=== PATIENT | female | born 1960 | race Caucasian/White ===

== ENCOUNTER 2019-11-17 08:00 | Outpatient (CLI) | payer BC, OTHER, SELFPAY ==
--- NOTE | 2019-12-05 01:51 | SLEEP_ITS ---
CPAP Titration DATE OF STUDY: 11/17/2019 REASON FOR THIS STUDY: Obstructive sleep apnea syndrome. HISTORY: The patient is a 59-year-old female, 68 inches tall, weighing 214 pounds with a body mass index of 32.5. On a prior study, October 24, 2019, she had a home sleep test for complaints of snoring with nocturia up to 2 times per night. On the home sleep study, she had an apnea-hypopnea index of 22.4 with a minimum desaturation to 85% and 6 minutes spent below 88%. She has hypertension and proceeded to a CPAP titration. MEDICAL COMORBIDITIES: Hypertension, arthritis, knee pain, adrenal gland removed, ventricular trigeminy, pheochromocytoma, hyperlipidemia, migraine headaches. MEDICATIONS: 1. Coreg 6.25 mg daily. 2. Ocuvite 1 tablet daily. 3. Multivitamin 1 daily. 4. Vitamin B12. 5. Vitamin C. 6. Vitamin D3. HABITS: Never smoked tobacco. Caffeine, 1 cup of coffee in the morning. Alcohol socially. No recreational drugs. DESCRIPTION OF THE STUDY: On the [place] Sleepiness Scale, her score was 3. This was conducted as an attended study in the sleep lab using the [employer] multiple channel system including EOG, EEG, submental EMG, EKG, nasal and oral airflow using thermistors and nasal pressure sensors, chest and abdominal belts, body position data, and pulse oximetry. This study was scored using CMS guidelines. Duration of the study was 468 minutes. The total sleep time was 237 minutes. The sleep efficiency was 55.4%. Sleep latency was prolonged at 36.1 minutes. REM latency was very prolonged at 218 minutes. There were 58 awakenings. The patient spent 40% of the study awake after sleep onset 172.8 minutes. Sleep architecture showed 10.3% stage I sleep, 41.9% stage II sleep, 0.3% stage III sleep, and 7.5% stage REM, 32.5 minutes. She spent 13.6 minutes supine, the remainder was nonsupine. Sleep architecture was very fragmented with a prolonged sleep latency, frequent shifts between stage wake, stage I, and stage II with 2 brief REM episodes. The first one was just a few minutes. Sleep did become more consolidated by the end of this study in the last 2 hours. The overall apnea-hypopnea index was 15.7. The obstructive index was 14.3. The central index was 0.9. No events occurred during REM. She had 33 obstructive apneas, 4 central apneas, 2 mixed apneas, and 6 obstructive hypopneas in supine non-REM for an index of 47.4. She had 3 obstructive apneas and 20 obstructive hypopneas in nonsupine non-REM for an index of 8.1. The supine index was 45.8. Nonsupine index was 6.9. The lowest desaturation was 86%. She spent 7 minutes below 88%, which was 0.2% of the study. There were 50 desaturations of 4% or greater for an index of 6.1. These all occurred during non-REM sleep. The mean sleep for the study was 94%. AROUSALS: 210 arousals for an index of 26.9. She had 29 apneas for an index of 3.7, 15 hypopneas for an index of 1.9, 15 snores for an index of 1.9, 134 spontaneous arousals for an index of 17.2 and 17 limb movements for an index of 2.1. LIMB MOVEMENTS: 59 limb movements for an index of 13.6. There were 2 periodic limb movements for an index of 0.5. Snoring was minimal, 41 episodes. EKG: Sinus rhythm, mean heart rate 81. No arrhythmia. EEG: Unremarkable. No apparent seizures. During this titration, the patient wore a [employer] small Halima View mask. CPAP was started at 5 cm and increased gradually up to a maximum of 14 cm. At 14 cm of pressure with heated humidifier, the patient was in bed for 1 hour 31 minutes, spent 30 minutes in REM sleep, 57 minutes in non-REM sleep, had 1 obstructive apnea, had an apnea-hypopnea index of 0.7, minimum saturation of 93%, and a sleep efficiency of 97%, which was excellen
== END 2019-11-17 08:01 | disposition home or self-care (01) ==
PROVIDERS: PCP Family Medicine; Visit Provider Internal Medicine Cardiovascular Disease
DX: G47.33 Obstructive sleep apnea (adult) (pediatric) (principal)
CPT/HCPCS: 95811

== ENCOUNTER 2020-10-08 09:58 | Outpatient (CLI) | payer BC, OTHER, SELFPAY ==
--- NOTE | ~2020-10-08 | XR_ITS ---
XR knee RT 3V DATE: 10/08/2020 10:24 INDICATION: Right knee pain. No recent injury. TECHNIQUE: [place], AP and lateral views COMPARISON: None FINDINGS: There is moderate knee joint effusion in the suprapatellar bursa. Synovial osteochondromato sis is noted. Moderate osteoarthritis is noted at the patellofemoral and medial compartments. No fracture, dislocation, periosteal reaction or bone destruction is detected. IMPRESSION: Moderate knee joint effusion Synovial osteochondromatosis Osteoarthritis involving primarily the medial and patellofemoral compartments Reviewed, dictated and finalized at location B. MACHINE OPERATOR
== END 2020-10-08 09:59 | disposition home or self-care (01) ==
LOC: ANHIMG 10:09
PROVIDERS: PCP Family Medicine; Visit Provider Nurse Practitioner Family
DX: M25.461 Effusion, right knee (principal); M17.11 Unilateral primary osteoarthritis, right knee
CPT/HCPCS: 73562

== ENCOUNTER 2020-10-10 08:52 | Outpatient (CLI) | payer BC, OTHER, SELFPAY ==
--- NOTE | ~2020-10-10 | MR_ITS ---
EXAMINATION: MR knee RT wo con DATE: 10/10/2020 10:08 INDICATION: Other abnormalities of gait and mobility. Right knee pain. TECHNIQUE: Magnetic resonance imaging (MRI) of the right knee was performed without intravenous contr ast. Sequences included axial PD-weighted FS FSE, coronal PD-weighted FSE and PD-weighted FS FSE, sag ittal PD-weighted FSE, and sagittal T2-weighted FS FSE. COMPARISON: Right knee radiographs 10/08/2020 FINDINGS: Medial compartment: There is maceration of the medial meniscus. There is full-thickness cartilage loss of tibial condyle involving the medial and anterior articular surface with cortical remodeling, subchondral cysts, mild subchondral edema-like marrow signal intensity, and osteophytes. There is full-thickness cartilage l oss of femoral condyle involving the central and medial articular surface with cortical remodeling, s ubchondral cysts, mild subchondral edema-like marrow signal intensity, and osteophytes. Lateral compartment: Lateral meniscus is normal. There is extensive partial thickness cartilage loss of femoral condyle an d tibial condyle, deep at the central articular surface of femoral condyle and medial articular surfa ce of tibial condyle. Osteophytes are noted. Patellofemoral compartment: There is extensive shallow partial-thickness cartilage loss of patella and trochlea. There is deep pa rtial thickness cartilage loss of central trochlea. Osteophytes are noted. Ligaments and tendons: The anterior and posterior cruciate ligaments are normal. There are changes of prior sprains of media l collateral ligament and fibular collateral ligament characterized by increased signal intensity pro ximally. There is mild patellar tendinopathy. Fluid: There is a large knee joint effusion with loose bodies. There is a large multiloculated Thompson's cyst. IMPRESSION: 1. Severe chondrosis of medial compartment and moderate chondrosis of lateral and patellofemoral comp artments. 2. Maceration of medial meniscus. 3. Large knee joint effusion with loose bodies. 4. Large Thompson's cyst. Reviewed, dictated and finalized at location A. E SEARCH MANAGER IMPRESSION: 1. Severe chondrosis of medial compartment and moderate chondrosis of lateral a nd patellofemoral compartments. 2. Maceration of medial meniscus. 3. Large knee joint effusion with loose bodies. 4. Large Thompson's cyst.
== END 2020-10-10 08:53 | disposition home or self-care (01) ==
LOC: ANHIMG 08:59
PROVIDERS: PCP Family Medicine; Visit Provider Nurse Practitioner Family
DX: R26.89 Other abnormalities of gait and mobility (principal); D48.1 Neoplasm of uncertain behavior of connective and other soft tissue; M25.461 Effusion, right knee; M23.41 Loose body in knee, right knee; M71.21 Synovial cyst of popliteal space [Baker], right knee
CPT/HCPCS: 73721

== ENCOUNTER 2020-11-07 07:55 | Outpatient (CLI) | payer BC, OTHER, SELFPAY ==
--- NOTE | 2020-11-07 09:02 | ECG_ITS ---
Measurements Intervals [place] Rate: 73 P: 27 KS: 153 QRS: 36 QRSD: 97 T: 67 QT: 387 QTc: 428 Interpretive Statements SINUS RHYTHM BASELINE ARTIFACT- I, II, III, AVR, AVL, AVF NORMAL ECG Electronically Signed On 11-07-2020 10:00:11 CAT DOG OR OTHER PET GROOMER by Willie Mejia D.O.
[2020-11-07 09:55] LABS: Basophils Percent Auto 0.4 % (0.2-1.2); Eosinophils Absolute Auto 0.2 K/mm3 (0-0.3); Eosinophils Percent Auto 3.7 % (0-4.4); Hematocrit 41.3 % (37.0-47.0); Hemoglobin 14.2 g/dL (12.0-15.0); Immature Granulocyte Absolute 0.03 K/mm3 (0.00-0.031); Immature Granulocyte Percent A 0.6 % (0-0.5); Lymphocytes Absolute Auto 1.41 K/mm3 (0.9-3.2); Lymphocytes Percent Auto 27.6 % (18.3-44.2); Mean Corpuscular HGB Conc 34.4 g/dl (32-36); Mean Corpuscular Hemoglobin 30.8 pg (26-34); Mean Corpuscular Volume 89.6 fl (80-100); Mean Platelet Volume 10.2 fl (7.4-10.4); Monocytes Absolute Auto 0.5 K/mm3 (0.1-0.6); Neutrophils Percent Auto 58.7 % (45.5-73.1); Platelet Count Result 176 k/mm3 (150-375); Red Blood Count 4.61 M/mm3 (4.2-5.4); White Blood Count 5.1 K/mm3 (4.5-10.0)
[2020-11-07 10:09] LABS: Albumin Level 4.5 g/dL (3.5-5.1); Estimated Glomerular Filt Rate > 60; Glucose 163 mg/dL (65-105); Hemoglobin A1C 7.7 % (<5.7)
[2020-11-07 10:10] LABS: Urine Cotinine NEGATIVE
== END 2020-11-07 07:56 | disposition home or self-care (01) ==
LOC: ANHSURGERY 08:01
PROVIDERS: PCP Family Medicine; Visit Provider Orthopaedic Surgery
DX: M17.11 Unilateral primary osteoarthritis, right knee (principal); Z01.818 Encounter for other preprocedural examination
CPT/HCPCS: 80307; 82040; 82565; 82947; 83036; 85025; 86850; 86900; 86901; 87081; 93005

== ENCOUNTER 2021-09-03 07:36 | Outpatient (CLI) | payer BC, OTHER, SELFPAY ==
--- NOTE | ~2021-09-03 | MM_ITS ---
EXAMINATION: MM screening juan BI w kylie HISTORY: Screening mammogram TECHNIQUE: Craniocaudal and mediolateral oblique 3-D tomosynthesis images were obtained and synthetic 2-D images were generated. CAD analysis was submitted and interpreted. COMPARISON: 09/12/2019 diagnostic right mammogram 08/01/2019 bilateral screening mammogram 07/12/2018 diagnostic left mammogram 06/21/2018 bilateral screening mammogram BREAST PARENCHYMAL COMPOSITION: There are scattered areas of fibroglandular density. FINDINGS: There is a biopsy marker on the right; history of prior benign right breast biopsy. Occasional scattered bilateral punctate benign-appearing microcalcifications. There is no evidence of suspicious mass, calcification, or architectural distortion to suggest malignancy in either breast. There has been no suspicious interval change. IMPRESSION: 1. No mammographic evidence of malignancy. 2. Recommend routine screening mammography in one year. BI-RADS Category 2: Benign finding(s). Reviewed, dictated and finalized at location A. FIELD OPERATOR
--- NOTE | ~2021-09-03 | DEXA_ITS ---
Bone Density Report Name: Lexy Arteaga Age: 61 Sex: Female Ethnicity: White Date of : 1960 Indication: postmenopausal; height loss; hysterectomy; Referring Provider: Aline Collins Study: Bone densitometry was performed. Exam Date: September 03, 2021 Accession number: [id number] Bone Density: Region BMD T-score Z-score Classification AP Spine (L1, L2) 0.928 -0.5 1.1 Normal Femoral Neck (Left) 0.837 -0.1 1.3 Normal Total Hip (Left) 1.117 1.4 2.6 Normal Total Hip Bilateral Avg 1.048 0.9 2.0 Normal Femoral Neck (Right) 0.815 -0.3 1.1 Normal Total Hip (Right) 0.978 0.3 1.4 Normal World Health Organization criteria for BMD impression classify patients as: Normal (T-score at or above -1.0), Osteopenia (T-score between -1.0 and -2.5), or Osteoporosis (T-score at or below -2.5). 10-year Fracture Risk: FRAX not reported because: All T-scores for Spine Total, Hip Total, Femoral Neck at or above -1.0 Previous Exams: Region Exam Age BMD T-score BMD Change BMD Change Date g/cm2 vs Baseline vs Previous AP Spine(L1, L2) 09/03/2021 61 0.928 -0.5 -0.117(-11.2%) -0.016(-1.6%) 06/21/2018 58 0.944 -0.3 -0.102(-9.7%)# -0.102(-9.7%)# 08/09/2012 52 1.045 0.6 Total Hip(Left) 09/03/2021 61 1.117 1.4 -0.035(-3.1%)# 0.004(0.4%) 06/21/2018 58 1.113 1.4 -0.040(-3.4%)# -0.040(-3.4%)# 08/09/2012 52 1.153 1.7 Total Hip(Right) 09/03/2021 61 0.978 0.3 -0.140(-12.5%) -0.060(-5.8%)* 06/21/2018 58 1.038 0.8 -0.079(-7.1%)# -0.079(-7.1%)# 08/09/2012 52 1.117 1.4 *Denotes significance at 95% confidence level, LSC for AP Spine = 0.022 g/cm2, LSC for Total Hip = 0.027 g/cm2 Clinical Information Provided by Patient: Has the following medical conditions: Hysterectomy Patient maximum height was 68.5 Menopause Age: 52 No regular weight bearing exercise Drinks caffeinated beverages Onset of menses at age 10 Number of children 3 Impression: The patient has normal bone mass. The BMD for the Total Hip(Right) decreased, changing by -5.8% since the last DXA exam. Discussion: BONE DENSITY IS ABOVE THE MINIMUM DESIRABLE LEVEL AT ALL SKELETAL SITES TESTED. This patient?s bone mineral density is above the minimum desirable level (T-score -1.0 or better) at all sites measured. The patient should follow a healthful lifestyle (good nutrition with adequate calcium and vitamin D, and appropriate weight-bearing exercise). Follow-Up:
== END 2021-09-03 07:37 | disposition home or self-care (01) ==
LOC: ANHIMG 07:39
PROVIDERS: PCP Family Medicine; Visit Provider Student in an Organized Health Care Education/Training Program
DX: Z12.31 Encounter for screening mammogram for malignant neoplasm of breast (principal); Z78.0 Asymptomatic menopausal state
CPT/HCPCS: 77063; 77067; 77080

== ENCOUNTER 2022-09-19 11:38 | Outpatient (CLI) | payer BC, OTHER, SELFPAY ==
--- NOTE | ~2022-09-19 | MM_ITS ---
EXAMINATION: MM screening juan BI w kylie HISTORY: Screening TECHNIQUE: Craniocaudal and mediolateral oblique 3-D tomosynthesis images were obtained and synthetic 2-D images were generated. CAD analysis was submitted and interpreted. COMPARISON: No prior mammogram is available for comparison at this institution. BREAST PARENCHYMAL COMPOSITION: There are scattered areas of fibroglandular density. FINDINGS: There is no evidence of suspicious mass, calcification, or architectural distortion to sugg est malignancy in either breast. There has been no suspicious interval change. IMPRESSION: 1. No mammographic evidence of malignancy. 2. Recommend routine screening mammography in one year. BI-RADS Category 1: Negative Reviewed, dictated and finalized at location A. CTIONAL BORE OPERATOR
== END 2022-09-19 11:39 | disposition home or self-care (01) ==
PROVIDERS: PCP Family Medicine; Visit Provider Student in an Organized Health Care Education/Training Program
DX: Z12.31 Encounter for screening mammogram for malignant neoplasm of breast (principal)
CPT/HCPCS: 77063; 77067

== ENCOUNTER 2023-04-12 10:30 | Outpatient (RCR) | payer OTHER, SELFPAY ==
[2023-04-01 09:38] VITALS: BMI 32.3
[2023-04-01 14:14] VITALS: BMI 32.3
== END 2023-06-14 10:18 | disposition home or self-care (01) ==
LOC: ANHDMC 10:30
PROVIDERS: PCP Family Medicine; Visit Provider Nurse Practitioner Family
DX: E11.65 Type 2 diabetes mellitus with hyperglycemia (principal); Z71.3 Dietary counseling and surveillance; Z71.89 Other specified counseling
CPT/HCPCS: 97802; G0108

== ENCOUNTER 2024-04-11 08:36 | Outpatient (CLI) | payer MEDICARE, OTHER, SELFPAY ==
--- NOTE | ~2024-04-11 | MM_ITS ---
EXAMINATION: MM screening juan BI w kylie HISTORY: Screening TECHNIQUE: Craniocaudal and mediolateral oblique 3-D tomosynthesis images were obtained and synthetic 2-D images were generated. CAD analysis was submitted and interpreted. COMPARISON: Comparison to multiple prior studies sequentially, with oldest reviewed study dated 06/21. BREAST PARENCHYMAL COMPOSITION: Not dense: There are scattered areas of fibroglandular density. FINDINGS: The left breast is stable without evidence for malignancy. There is a small subareolar mass of the right breast, not definitely seen on prior examination. This is seen on CC view only. The lef t breast is stable without evidence for malignancy. IMPRESSION: 1. New small subareolar mass of the right breast. 2. Additional mammographic views and possible breast ultrasound are recommended. BI-RADS Category 0: Incomplete: Needs additional imaging evaluation. Reviewed, dictated and finalized at location B. IMPRESSION: 1. New small subareolar mass of the right breast. 2. Additional mammographic views and possible breast ultrasound are recommended . BI-RADS Category 0: Incomplete: Needs additional imaging evaluation.
--- NOTE | ~2024-04-11 | DEXA_ITS ---
Bone Density Report Name: GEMMA FRYE Age: 63 Sex: Female Ethnicity: White Date of : 1960 Indication: postmenopausal; screening for osteoporosis; hysterectomy; Referring Provider: ZAK, OSVALDO [place] Study: Bone densitometry was performed. Exam Date: April 11, 2024 Accession number: [id number] Bone Density: Region BMD T-score Z-score Classification AP Spine(L1-L4) 1.070 0.2 2.0 Normal Femoral Neck (Left) 0.906 0.5 2.1 Normal Total Hip (Left) 1.134 1.6 2.8 Normal Femoral Neck (Right) 0.836 -0.1 1.4 Normal Total Hip (Right) 1.052 0.9 2.2 Normal Total Hip Mean 1.093 1.3 2.5 Normal World Health Organization criteria for BMD impression classify patients as: Normal (T-score at or above -1.0), Osteopenia (T-score between -1.0 and -2.5), or Osteoporosis (T-score at or below -2.5). 10-year Fracture Risk: FRAX not reported because: All T-scores for Spine Total, Hip Total, Femoral Neck at or above -1.0 Clinical Information Provided by Patient: Has used the following medications: Vitamin D Has the following medical conditions: Hysterectomy Patient maximum height was 68 Menopause Age: 52 No regular weight bearing exercise Drinks caffeinated beverages Onset of menses at age 11 Number of children 3 Impression: The patient has normal bone mass. Discussion: BONE DENSITY IS ABOVE THE MINIMUM DESIRABLE LEVEL AT ALL SKELETAL SITES TESTED. This patient?s bone mineral density is above the minimum desirable level (T-score -1.0 or better) at all sites measured. The patient should follow a healthful lifestyle (good nutrition with adequate calcium and vitamin D, and appropriate weight-bearing exercise). Follow-Up: Consider repeating this study in 5 years or sooner if there is some new clinical indication. Reported by: MAY on 04/11/2024 9:21:00 AM. Reviewed, dictated and finalized at location AKeiko CHAWLA
== END 2024-04-11 08:37 | disposition home or self-care (01) ==
PROVIDERS: PCP Family Medicine; Visit Provider Registered Nurse
DX: Z12.31 Encounter for screening mammogram for malignant neoplasm of breast (principal); Z78.0 Asymptomatic menopausal state; R92.8 Other abnormal and inconclusive findings on diagnostic imaging of breast
CPT/HCPCS: 77063; 77067; 77080

== ENCOUNTER 2024-05-01 11:05 | Outpatient (CLI) | payer MEDICARE, OTHER, SELFPAY ==
--- NOTE | ~2024-05-01 | MMUS_ITS ---
EXAMINATION: MM diagnostic juan RT w kylie, US breast RT limited HISTORY: Follow-up right breast asymmetry TECHNIQUE: Additional 3-D tomosynthesis images of the right breast were performed and synthetic 2-D i mages were generated. CAD analysis was submitted and interpreted. High resolution Limited right breas t ultrasound was performed. COMPARISON: 04/11/2024 BREAST PARENCHYMAL COMPOSITION: Not dense: There are scattered areas of fibroglandular density. FINDINGS: MAMMOGRAPHIC FINDINGS: There are no suspicious masses, calcifications or architectural distortion in the right breast to sug gest malignancy. ULTRASOUND: Limited right breast ultrasound: At 12:00 near the areola there is a small 4 mm cyst which may repres ent a simple cyst or focally dilated duct. No suspicious masses in the right breast to suggest malign bijal. IMPRESSION: 1. No evidence for malignancy in the right breast. 2. Routine yearly screening mammogram and regular clinical breast examination are recommended. BI-RADS Category 2: Benign finding(s). Reviewed, dictated and finalized at location B. IMPRESSION: 1. No evidence for malignancy in the right breast. 2. Routine yearly screening mammogram and regular clinical breast examination a re recommended. BI-RADS Category 2: Benign finding(s).
== END 2024-05-01 11:06 | disposition home or self-care (01) ==
LOC: ANHIMG 11:06
PROVIDERS: PCP Family Medicine; Visit Provider Obstetrics & Gynecology
DX: R92.8 Other abnormal and inconclusive findings on diagnostic imaging of breast (principal)
CPT/HCPCS: 76642; 77061; 77065; G0279

== ENCOUNTER 2025-06-18 09:01 | Outpatient (CLI) | payer MEDICARE, OTHER, SELFPAY ==
--- NOTE | ~2025-06-18 | MM_ITS ---
EXAMINATION: MM screening [facility] BI w kylie HISTORY: Screening TECHNIQUE: Craniocaudal and mediolateral oblique 3-D tomosynthesis images were obtained and synthetic 2-D images were generated. CAD analysis was submitted and interpreted. COMPARISON: 04/11/2024 and 09/03/2021 BREAST PARENCHYMAL COMPOSITION: There are scattered areas of fibroglandular density. FINDINGS: There is no evidence of suspicious mass, calcification, or architectural distortion to suggest malignancy. There has been no suspicious interval change. IMPRESSION: 1. No mammographic evidence of malignancy. Recommend routine screening mammography in one year. BI-RADS Category 2: Benign finding(s) Reviewed, dictated and finalized at location Q. IMPRESSION: 1. No mammographic evidence of malignancy. Recommend routine screening mammogra phy in one year. BI-RADS Category 2: Benign finding(s)
--- OUTSIDE RECORDS SUMMARY | 2025-06-18 09:46 | XMS_ITS | Encounter Summary ---
Author Organization [facility] Healthcare Address [address] [place] [address] Care Team Providers Care Pediatric Psychiatrist Name Role Phone Lorrie Gordon MD Primary Care Provider [phone] Adan Villela MD Primary Care Provider + [phone] Encounter Details Date Type Department Care Team (Late st Contact Info) Description 11/28/2018 Documentation [facility] Anesthesia [address] [place] [id number] Sinan Bernstein MD [facility] [place] [address] Social History Tobacco Use Types Packs/Day Years Used Date Smoking Tobacco: Former Cigarettes 1 9 - 1983 Smokeless Tobacco: Never Alcohol Use Standard Drinks/Week Comments No 0 (1 standard drink = 0.6 oz pur e alcohol) Comments Unknown Sex and Gender Information Value Date Recorded Sex Assigned at Not on file Legal Sex 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
--- OUTSIDE RECORDS SUMMARY | 2025-06-18 09:46 | XMS_ITS | Clinical Summary ---
Author Organization [facility] Address [address] [place] [address] Care Team Providers Care Steel Spar Operator Name Role Phone Adan Villela MD Primary Care Provider + [phone] Allergies Active Allergy Reactions Criticality Noted Date Comments Penicillin G Rash Medium 11/09/2018 Childhood reaction: rash; per chart records, tolerated cefazolin in 12/2018 Medications multivitamin-ca lcium carb tablet,chewable Take 1 tablet/chew tab by mouth nightly. Active ascorbic acid, vitamin C, 125 mg tablet,chewable Take 1 tablet/chew tab by mouth nightly. Active cyanocobalamin 2,000 mcg tablet Take 1 tablet (2,000 mcg total) by mouth nightly Active cholecalciferol , vitamin D3, 1,000 unit tablet,chewable Take 1 tablet/chew tab by mouth nightly Active carvediloL (COREG) 6.25 mg tablet Take 1 tablet (6.25 mg total) by mouth 2 (two) times a day with meals Active cinnamon bark 500 mg capsule Take 2 capsules (1,000 mg total) by mouth daily Active krill oil 500 mg capsule Take 1 capsule by mouth daily Active metFORMIN (GLUCOPHAGE) 500 mg tablet Take 1 tablet (500 mg total) by mouth nightly Active semaglutide (Ozempic) 1 mg/dose (4 mg/3 mL) pen injector injectionIndica tions:type 2 diabetes mellitus Inject 1 mg under the skin once a week Takes on Fridays. As of 07/13/23, last dose 07/08/23 Active HYDROcodone-suzi taminophen (NORCO) 5-325 mg per tabletIndicatio ns:Pain Take 1 tablet by mouth every 4 (four) hours as needed for pain for up to 30 doses 25 tablet 07/27/2023 Active docusate sodium (COLACE) 100 mg capsuleIndicati ons:constipatio n Take 1 capsule (100 mg total) by mouth 2 (two) times a day For constipation. 60 capsule 07/27/2023 Active Active Problems Problem Noted Date Diagnosed Date Vaginal prolapse 07/27/2023 Vaginal vault prolapse after hysterectomy 2022 Stress incontinence 02/26/2023 Hypertension 11/09/2018 Obesity (BMI 30.0-34.9) 11/09/2018 Pheochromocytoma of left adrenal gland 9 Overview (11/08/2018): Added automatically from request for surgery [id number] Surgical History Surgery Date Site/Laterality Comments KNEE SURGERY 10/04/2012 - 10/03/2013 Right arthroscopy HYSTERECTOMY 10/04/2011 - 10/03/2012 KNEE ARTHROPLASTY 10/04/2020 - 10/03/2021 Right LAPAROSCOPIC ADRENALECTOMY 10/04/2017 - 10/03/2018 Left ENDOMETRIAL ABLATION 10/04/2009 - 10/03/2010 approximate date Medical History Medical History Date Comments Migraines HTN (hypertension) Pheochromocytoma Obesity (BMI 30-39.9) BMI 33 Family History Medical History Relation Name Comments Hypertension Father Hypertension Mother Relation Name Status Comments Father Mother Social History Tobacco Use Types Packs/Day Years Used Date Smoking Tobacco: Former Cigarettes 1 9 - 1983 Smokeless Tobacco: Never Tobacco Cessation:Counseling Given: Not Answered Alcohol Use Standard Drinks/Week Comments No 0 (1 standard drink = 0.6 oz pur e alcohol) AUDIT-C Answer Date Recorded Q1: How often do you have a drink containing alc ohol? Monthly or less 07/27/2023 Q2: How many drinks containi ng alcohol do you have on a typical day when you are drinking? 1 or 2 07/27/2023 Q3: How often do you have si x or more drinks on one occasion? Never 07/27/2023 Personal Safety Answer Date Recorded Have you ever been in or are you currently in a harmful physical or emotional relationship or is someone making you feel afraid or unsafe? 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 Gender Identity Not on file Sexual Orientation Not on file Obstetrics History Last Filed Vital Signs Vital Sign Reading Time Taken Comments Blood Pressure 149/87 07/28/2023 8:10 AM CDT Pulse 72 07/28/2023 8:10 AM CDT Temperature 36.6 C (97.9 F) 07/28/2023 8:10 AM CDT Respiratory Rate 16 07/28/2023 8:10 AM CDT Oxygen Saturation 98% 07/28/2023 8:10 AM CDT Inhaled Oxygen Concentration - - Weight 92 kg (202 lb 13.2 oz) 07/27/2023 4:15 PM CDT Height 172.7 cm (5' 8) 07/27/2023 4:15 PM CDT Body Mass Index 30.84 07/27/2023 4:15 PM CDT Plan of Treatment Health Maintenance Due Date Last Done Comments Breast Cancer Screening-Mammogram 1960 Colon Cancer Screening-Colonoscopy 1960 Depression Screening 1960 Hepatitis C Screening 1960 Osteoporosis Screening-Bone Density Scan 1960 DTaP/Tdap/Td Vaccine (1 - Tdap) 1969 Hepatitis B Screening 1976 Pneumococcal vaccine 65+ (1 of 1 - PCV) 2008 Zoster Vaccine (1 of 2) 2008 Well Visit 65+ 2023 Fall Risk Assessment 07/28/2024 07/28/2023 Covid-19 Vaccine (3 - 2024- season) 06/04/202508/2022, 01/01/2021 Influenza Vaccine (#1) 2025 Medical Devices Implanted Type Area Pipe Smoking Machine Operator Device Identifier Shelf Expiration Date Model / Serial / Lot [employer] Mesh Surgical Pelvic Synthetic Y Shape Vertessa Lite [id number] Polypropylene [id number] - [id number] - [id number] Implanted:Qty: 1 on 07/27/2023 by Luis Cobian MD at [facility] Mesh N/A: Pelvis [employer] 05/18/2028 [id number] / [id number] / [id number] Insurance [facility] MEDICARE [facility] Address: [facility] [address] [place] [address] MEDICARE FOR LIFE Advance Directives For more information, please contact: [phone] * Full Code (Latest Code Status on File) Date Activated Date Inactivated Comments 07/27/2023 4:15 PM 07/28/2023 5:52 PM * Full Code Date Activated Date Inactivated Comments 12/02/2018 2:18 PM 12/03/2018 4:09 PM * Full Code Date Activated Date Inactivated Comments 12/02/2018 2:18 PM 12/02/2018 2:18 PM Care Teams Steel Spar Operator Relationship Specialty Start Date End Date Adan Villela MD PCP - General 12/02/18
--- OUTSIDE RECORDS SUMMARY | 2025-06-18 09:46 | XMS_ITS | Clinical Summary ---
Author Organization [facility] Address [address] [place] [address] Phone Care Team Providers Care Manager Subway Name Role Phone Adan Villela MD Primary Care Provider [phone] Allergies Active Allergy Reactions Criticality Noted Date Comments Penicillins Rash Low 10/17/2019 Medications carvedilol (COREG) 6.25 mg tablet Take 6.25 mg by mouth 2 times daily with meals. 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 Gender Identity Not on file Sexual Orientation Not on file Last Filed Vital Signs Vital Sign Reading Time Taken Comments Blood Pressure 146/90 10/17/2019 11:28 AM ANESTHESIA TECHNICIAN Pulse - - Temperature - - Respiratory Rate - - Oxygen Saturation - - Inhaled Oxygen Concentration - - Weight 99.8 kg (220 lb) 10/17/2019 11:28 AM ANESTHESIA TECHNICIAN Height 172.7 cm (5' 8) 10/17/2019 11:28 AM ANESTHESIA TECHNICIAN Body Mass Index 33.45 10/17/2019 11:28 AM ANESTHESIA TECHNICIAN Plan of Treatment Health Maintenance Due Date Last Done Comments DTAP/TDAP/TD VACCINES (1 - Tdap) 1977 COLORECTAL SCREENING 2003 Colorectal Cancer Screening 2003 FIT-DNA Q 3 years 2003 FIT/FOBT Q 1 year 2003 Flex Sig/CT Colonography Q 5 years 2003 PNEUMOCOCCAL VACCINE 50+ YEA RS (1 of 1 - PCV) 2008 ZOSTER VACCINE (1 of 2) 2008 BREAST CANCER SCREENING 09/12/2020 09/12/20 19, 08/01/2019, 07/12/2018, Additional history exists OSTEOPOROSIS SCREENING 2023 INFLUENZA VACCINE (#1) 2025 RSV VACCINE (60+ or ) (1 - 1-dose 75+ series) 2033 Procedures Procedure Name Priority Date/Time Associated Diagnosis Comments MAMMO DIAGNOSTIC UNI RIGHT W OR WO CAD Routine 09/12/2019 from Last 3 Months or Most Recently Relevant to Health Maintenance Results * (ABNORMAL) MAMMO DIAGNOSTIC UNI RIGHT W OR WO CAD (09/12/2019) Anatomical Region Laterality Modality Breast Right Mammography us Aline Collins MD MAMMO ORDERABLES Edited Re sult - Final from Last 3 Months or Most Recently Relevant to Health Maintenance Insurance [employer] Care Teams Manager Subway Relationship Specialty Start Date End Date Adan Villela MD [address] [place] [address] PCP - General Family Practice 10/17/19
== END 2025-06-18 09:02 | disposition home or self-care (01) ==
LOC: ANHFOHIMG 09:03
PROVIDERS: Visit Provider Nurse Practitioner Obstetrics & Gynecology
DX: Z12.31 Encounter for screening mammogram for malignant neoplasm of breast (principal)
CPT/HCPCS: 77063; 77067

== ENCOUNTER 2025-09-07 15:41 | Emergency (ER) | payer MEDICARE, OTHER, SELFPAY ==
--- NOTE | ~2025-09-07 | XR_ITS ---
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 Findings: Small avulsion fracture medial malleolus No significant degenerative changes. Soft tissues unremarkable. Impression: Small medial malleolus avulsion fracture Reviewed, dictated and finalized at location P. NESS ANALYST MANAGER Impression: Small medial malleolus avulsion fracture
--- NOTE | 2025-09-07 15:44 | ED.LOWEXIN ---
HPI - Extremity Injury (Lower) General Chief Complaint: Extremity Injury, Lower Stated Complaint: Right Ankle Pain Time Seen by Provider: 09/07/25 15:58 Source: patient, RN notes reviewed and old records reviewed Mode of arrival: ambulatory Limitations: no limitations History of Present Illness HPI Narrative: 65-year-old female presents to the [facility] with complaints of ankle pain, swelling and bruising. Tenderness to both the lateral and medial malleolus. Patient states that she twisted her foot on Wednesday and fell onto it. Has been wrapping it and applying ice. Treatments prior to arrival: cold therapy and splint Related Data Home Medications ?Medication ?Instructions ?Recorded ?Confirmed ?Last Taken ?Type ascorbic acid (vitamin C) 1,000 mg 2,000 g PO DAILY 12/11/20 08/13/25 Unknown History tablet multivitamin (Daily Multi-Vitamin 1 tablet PO DAILY 07/14/22 08/13/25 Unknown History tablet) cholecalciferol (vitamin D3) 25 25 mcg PO DAILY 01/20/23 08/13/25 Unknown History mcg (1,000 unit) capsule cinnamon bark 500 mg capsule 500 mg PO DAILY 01/20/23 08/13/25 Unknown History (Cinnamon) cyanocobalamin (vitamin B-12) 3,000 mcg PO DAILY 01/20/23 08/13/25 Unknown History 3,000 mcg capsule omega-3 fatty acids-fish oil 360 1 cap PO DAILY 04/03/25 08/13/25 Unknown History mg-1,200 mg capsule (Fish Oil) Allergies Allergy/AdvReac Type Severity Reaction Status Date / Time cortisone Allergy Mild heart Verified 09/07/25 16:05 racing, headache, sweats Penicillins Allergy Unknown Unknown Verified 09/07/25 16:05 [id number] Reductase AdvReac muscle Verified 09/07/25 16:05 Inhibitor cramps Review of Systems Review of Systems: All systems reviewed & are unremarkable except as noted in HPI and below Constitutional: Constitutional: Reports no additional constitutional complaints Cardiovascular: Cardiovascular: Reports no additional cardiovascular complaints, Denies chest pain and Denies dyspnea Respiratory: Respiratory: Reports no additional respiratory complaints, Denies chest congestion, Denies cough and Denies dyspnea Musculoskeletal: Musculoskeletal: Reports as per HPI, Reports arthralgias and Reports joint swelling Integumentary/Breasts: Skin/Breast: Reports system reviewed and no additional complaints, except as docu [facility] Past Medical History Medical History History of pheochromocytoma Osteoarthritis of right knee Anemia BMI 35.0-35.9,adult Essential hypertension Hypersomnia Irregular heart beat Mixed hyperlipidemia Surgical History Surgical History Status post sacrocolpopexy vaginal sacrocolpopexy with bladder sling by Dr. Cobian 07/2023 Hx of partial adrenalectomy H/O knee surgery Left knee 2012 Dr. Hurt Right knee 2020 H/O: hysterectomy H/O colonoscopy Family History Family History Grandparent Family history of premature coronary heart disease Father Hypertension Mother Hypertension Blind Other Diabetes mellitus Social History Social History Years smoked: 8 Smoking status: Former smoker Tobacco type: cigarettes Second hand tobacco smoke exposure: No Smoking end date: 10/04/84 Additional smoking assessment comments: DENIES ANY FORM OF TOBACCO USE Alcohol intake: current Substance use: never Substance use type: does not use Lack of Transportation: No Lack of Food: Never True Current Housing: I Have Housing Concerned About Future Housing: No Difficulty Paying Gas/Electric Bills: No Difficulty Paying for Meds: No Currently Unemployed: No Education: High School Diploma/GED Difficulty w/ Childcare or Family Care: No Living arrangements: with family Occupation/Education: retired Additional occupation/education comments: [employer]-retired 06/25 Gender identity (if verbalized by the patient): Female Spiritual care concerns: No Comments At the time of my signature, I reviewed and agree with the nursing past medical, surgical, social, and family history. There is no relevant family history pertinent to the patient complaint. Exam Const: General: cooperative, healthy appearing, comfortable, no acute distress, well developed, alert and well nourished Nutritional Appearance: well nourished Orientation/consciousness: patient oriented x3 Limitations: no limitations HENMT: Head: normal to inspection Eyes: General: appearance normal, both eyes and all related structures Alignment and Position: alignment normal Neck: Neck: normal visual inspection, full ROM, no lymphadenopathy and no meningeal signs Chest: Chest palpation & inspection: normal inspection of the chest Resp: Effort & Inspection: normal respiratory effort and able to speak in complete sentences Cardio: Rate: regular rate Skin: General skin exam: normal color and no rashes or lesions noted Neuro: General: patient oriented x3, gait normal, moves all extremities and no meningeal signs Cognition (Neuro): normal cognition Speech: normal speech Gait exam (Neuro): Normal gait present Extrem: General: normal to inspection, full ROM, capillary refill normal and normal gait Right lower extremity: full ROM and ankle Details: tenderness Location: of the lateral malleolus and of the medial malleolus, swelling Details: diffusely, normal ROM and ecchymosis; no abrasions, no lacerations and no foreign bodies Psych: Appearance: grossly normal and well kempt Mental Status: mental status grossly normal Speech and movement: Normal speech and movement present and Clear speech present Affect: normal affect Attitude: cooperative Course Course Level of Care: Express Care Visit Vital Signs Vital signs: Vital Signs Temperature 97.9 F 09/07/25 15:57 Pulse Rate 91 09/07/25 15:57 Respiratory Rate 18 09/07/25 15:57 Blood Pressure 179/91 H 09/07/25 15:57 Pulse Oximetry 98 09/07/25 15:57 Oxygen Delivery Room Air 09/07/25 15:57 Temperature 97.9 F 09/07/25 15:57 Pulse Rate 91 09/07/25 15:57 Respiratory Rate 18 09/07/25 15:57 Blood Pressure 179/91 H 09/07/25 15:57 Pulse Oximetry 98 09/07/25 15:57 Oxygen Delivery Room Air 09/07/25 15:57 reviewed MDM MDM Narrative Medical decision making narrative: Patient sitting in exam room. Patient is nontoxic, vitals stable. Patient injured ankle on Wednesday, 4 days ago, x-ray shows medial malleolus chip fracture, splint placed. Patient already has crutches. Patient is appropriate for outpatient treatment with close follow-up. Discussed blood pressure to follow-up with primary care provider Discharge instructions reviewed with patient, as well as provided in writing per nursing staff. The instructions also include specific and strict return/GO TO THE ER as well as f/u information. All questions have been answered, and the patient deny any further questions with discharge and discharge plan. Some parts of this dictation were generated by voice recognition software and may contain typographical and/or grammatical inaccuracies. Differential Diagnosis Differential Diagnosis: Differential diagnostic considerations for lower extremity injury include ankle sprain/strain, acute internal derangement of knee, fracture of femur, fracture of hip, puncture wound of foot, fracture of toe, fracture of ankle, tendon rupture (achilles/patellar/quadriceps). 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 Findings: Small avulsion fracture medial malleolus No significant degenerative changes. Soft tissues unremarkable. Impression: Small medial malleolus avulsion fracture Discharge Plan Discharge Clinical Impression: Elevated blood pressure reading Avulsion fracture of medial malleolus of right tibia Qualifiers: Encounter type: initial encounter Fracture type: closed Qualified Code(s): S82.51XA - Displaced fracture of medial malleolus of right tibia, initial encounter for closed fracture Patient Disposition: Home Condition: Stable Instructions: Antibiotic Form, Crutch Instructions (ED), Splint Care (ED), Avulsion Fracture (ED) Additional Instructions: rest, ice and elevate every 2-3 hours for 15-20 minutes while awake. Take Motrin alternating with Tylenol as needed for pain. Today your blood pressure was 179/91. Please follow-up with primary care provider to have this rechecked within 2 weeks. Patient Language: Faroese Prescriptions: No Action multivitamin [Daily Multi-Vitamin] Tablet 1 tablet PO DAILY omega-3 fatty acids-fish oil [Fish Oil] 360-1,200 mg capsule 1 cap PO DAILY Synjardy XR 12.5-1,000 mg tablet, IR - ER, biphasic 24hr 1 tablet PO DAILY Qty: 90 0RF ascorbic acid (vitamin C) 1,000 mg tablet 2,000 g PO DAILY cholecalciferol (vitamin D3) 25 mcg (1,000 unit) capsule 25 mcg PO DAILY cinnamon bark [Cinnamon] 500 mg capsule 500 mg PO DAILY (DME) blood-glucose meter Kit See Rx Instructions .ROUTE .MEDSUPPLY Qty: 1 0RF Rx Instructions: ACHS cyanocobalamin (vitamin B-12) 3,000 mcg capsule 3,000 mcg PO DAILY carvedilol 6.25 mg tablet See Rx Instructions .ROUTE .COMPLEX Qty: 180 2RF Dose Instruction: TAKE 1 TABLET BY MOUTH EVERY 12 HOURS Rx Instructions: TAKE 1 TABLET BY MOUTH EVERY 12 HOURS lisinopril 5 mg tablet See Rx Instructions .ROUTE .COMPLEX Qty: 90 0RF Dose Instruction: TAKE 1 TABLET BY MOUTH EVERY DAY Rx Instructions: TAKE 1 TABLET BY MOUTH EVERY DAY ezetimibe [Zetia] 10 mg tablet 10 mg PO DAILY Qty: 90 0RF Follow-up/Referrals: Adan Villela MD [Primary Care Provider, Family Practice] Cory Romero MD [Physician, Orthopedics] - 3 Days Clinical Impression: Avulsion fracture of medial malleolus of right tibia Stand Alone Forms: Work/School Release IP Time of Disposition: 16:56
[2025-09-07 15:57] VITALS: BP 179/91; PULSE 91; RESP 18; TEMP 36.6; O2SAT 98
== END 2025-09-07 17:09 | disposition home or self-care (01) ==
PROVIDERS: Emergency Provider Nurse Practitioner; PCP Family Medicine
DX: S82.51XA Displaced fracture of medial malleolus of right tibia, initial encounter for closed fracture (principal); W19.XXXA Unspecified fall, initial encounter; I10 Essential (primary) hypertension; E78.2 Mixed hyperlipidemia; M17.11 Unilateral primary osteoarthritis, right knee; Z87.891 Personal history of nicotine dependence
CPT/HCPCS: 29515; 73610; 99214; G0463